=== PATIENT | male | born 1990 | race Caucasian/White ===

== ENCOUNTER 2018-03-15 07:02 | Emergency (ER) | payer OTHER ==
[~2018-03-15] VITALS: Ht 180.3 cm; Wt 158.8 kg
[~2018-03-15 07:02] MED LIST: ALBU90OI INH; ALPR1 PO; ARIP10 PO; AZIT250 PO; BENZ1 PO; BENZ100A PO; BUPR150ER PO; BUPR75; CIPR500 PO; CRUTCH4 USE; CYCL10 PO; Flonase 0.05% N16 GM; GUAI100SY PO; HYDACE5 PO; HYDPAM50 PO; IBUP800 PO; LORA1 PO; LOXA10 PO; MECL25 PO; Mobic15 MG PO; Mucinex600 MG PO; PRODEXEL PO; PROM25 PO; PSYCH MED; Percocet 10-321 EACH PO; RXPROACE PO; TRAM50 PO; [UNRECOGNIZED DRUG - REMARK]
== END 2018-03-15 08:10 | disposition home or self-care (01) ==
LOC: ER 07:02
DX: S93.602A Unspecified sprain of left foot, initial encounter (principal); X58.XXXA Exposure to other specified factors, initial encounter; Y99.0 Civilian activity done for income or pay
CPT/HCPCS: 73630; 99283-25

== ENCOUNTER 2023-07-31 16:16 | Emergency (ER) | payer OTHER ==
[~2023-07-31] VITALS: Ht 177.8 cm; Wt 147.4 kg
[2023-07-31 17:08] VITALS: BP 162/93
== END 2023-07-31 18:17 | disposition home or self-care (01) ==
LOC: ER 16:16
DX: S29.012A Strain of muscle and tendon of back wall of thorax, initial encounter (principal); S53.402A Unspecified sprain of left elbow, initial encounter; W01.0XXA Fall on same level from slipping, tripping and stumbling without subsequent striking against object, initial encounter; Z88.5 Allergy status to narcotic agent
CPT/HCPCS: 73080; 99283-25